=== PATIENT | female | born 1985 | race African-American/Black ===

== ENCOUNTER 2019-05-25 01:07 | Emergency (ER) | payer MEDICAID ==
[~2019-05-25] VITALS: Ht 170.2 cm; Wt 78.0 kg
[2019-05-25] MEDS ORDERED: IBUPROFEN 600MG TABLET PO ONE (03:30)
[2019-05-25 05:41] VITALS: BP 125/75
== END 2019-05-25 05:41 | disposition home or self-care (01) ==
LOC: ER 01:07
DX: S13.4XXA Sprain of ligaments of cervical spine, initial encounter (principal); S39.012A Strain of muscle, fascia and tendon of lower back, initial encounter; V89.2XXA Person injured in unspecified motor-vehicle accident, traffic, initial encounter; Y93.89 Activity, other specified; Y92.89 Other specified places as the place of occurrence of the external cause; Y99.8 Other external cause status
CPT/HCPCS: 72040; 72100; 99283